=== PATIENT | female | born 1990 | race Caucasian/White ===

== ENCOUNTER 2022-10-12 08:51 | Emergency (ER) | payer MEDICAID ==
--- NOTE | 2022-10-12 08:51 | NUR ---
per officer manasa, does not 5150 criteria, but wants her medically evaluated for ermd.
--- NOTE | 2022-10-12 09:31 | NUR ---
per Rakesh NEELY, pt will be seen here for medical c/o, but if patient continues behavior to call back. states if she becomes aggressive to restrain her. thompson made aware.
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
--- NOTE | 2022-10-12 09:45 | NUR ---
pd goel informed that pt is refusing to stay and be evaluated. lwbs. thompson made aware.
== END 2022-10-12 09:45 | disposition left against medical advice (07) ==
LOC: MED 08:51
DX: N93.9 Abnormal uterine and vaginal bleeding, unspecified (principal); Z53.21 Procedure and treatment not carried out due to patient leaving prior to being seen by health care provider